=== PATIENT | female | born 1965 | race Caucasian/White ===

== ENCOUNTER 2016-12-27 05:28 | Day surgery (SDC) | payer BC ==
[~2016-12-27] VITALS: Ht 160 cm; Wt 75.3 kg
[~2016-12-27 05:28] MED LIST: ADDERALL10 MG PO; FIORICET,ESG1 TABLET PO; MOTRIN800 MG PO; NORVASC5 MG PO; SERTRALINE HCL50 MG PO; TOPROL XL50 MG PO
[2016-12-27 05:58] VITALS: BP 144/75
[2016-12-27 11:22] VITALS: BP 108/59
[2016-12-27 19:26] VITALS: BP 120/68
[2016-12-27 23:48] VITALS: BP 90/50
[2016-12-28 03:40] VITALS: BP 99/50
[2016-12-28 08:35] VITALS: BP 114/56
[2016-12-28] MEDS ORDERED: MOTRIN800 MG PO (09:41)
[2016-12-28] MEDS ORDERED: PERCOCET 5/31 TABLET PO (09:42)
[2016-12-28 10:17] LABS: HEMATOCRIT 30.9 % (36.0-46.0); MCH 32.2 PG (29.0-34.0); MCHC 35.6 G/DL (30.0-36.0); MCV 90.4 FL (83-99); MEAN PLAT.VOLUME 12.2 uM^3 (9.5-12.4); RBC DIS.WIDTH-SD 42.3 % (39-53); WHITE BLOOD COUNT 7.8 K/uL (4.1-10.2)
[2016-12-28 10:21] LABS: PLATELET COUNT 104 K/uL (156-360); RED BLOOD COUNT 3.42 M/uL (3.80-5.20)
[2016-12-28 11:47] VITALS: BP 122/57
[2016-12-28 17:05] VITALS: BP 132/79
[2016-12-28 19:30] VITALS: BP 118/67
[2016-12-28 20:50] LABS: ADD MIUA? YES; BILIRUBIN NEGATIVE; BLOOD NEGATIVE; COLOR YELLOW ((YELLOW)); GLUCOSE (STRIP) NEGATIVE; KETONES NEGATIVE; LEUKOCYTES SMALL; NITRITE NEGATIVE; PROTEIN (STRIP) NEGATIVE; SPECIFIC GRAVITY 1.012 (1.000-1.030); UROBILINOGEN 0.2 MG/DL (0.2-1.0)
[2016-12-28 21:20] LABS: BACTERIA NONE SEEN /HPF; EPITHELIAL CELLS RARE /HPF; MUCUS TRACE /LPF; RED BLOOD CELLS 0-5 /HPF (0-5); UCUL ADDED? YES; WHITE BLOOD CELLS CLUMP RARE /HPF (0-5)
[2016-12-29 00:13] VITALS: BP 105/55
[2016-12-29 03:39] VITALS: BP 158/79
[2016-12-29 07:33] VITALS: BP 130/75
[2016-12-29] MEDS ORDERED: DOCUSATE SODIU100 MG PO (10:50)
== END 2016-12-29 12:38 | disposition home or self-care (01) ==
LOC: SDC 05:28 → 2SOUTH 09:31 → 2EAST 09:31 → 2SOUTH 09:31 → ENRESERV 09:54 → 2EAST 11:25 → SDC 12:00 → 2EAST 12-29 12:38
PROVIDERS: Obstetrics & Gynecology
DX: N80.0 Endometriosis of uterus (principal); N92.0 Excessive and frequent menstruation with regular cycle; N72 Inflammatory disease of cervix uteri; R33.9 Retention of urine, unspecified; I10 Essential (primary) hypertension; Z88.0 Allergy status to penicillin
CPT/HCPCS: 81003; 85027; 87086; 88307; G0378; J0131; J1100; J1170; J1580; J1644; J1885; J2250; J2270; J2300; J2405; J2765; J3010; J7050; J7120